=== PATIENT | female | born 1950 | race Caucasian/White ===

== ENCOUNTER 2017-07-14 10:34 | Emergency (ER) | payer BC ==
[~2017-07-14] VITALS: Ht 172.7 cm; Wt 79.0 kg
[2017-07-14 10:36] VITALS: BP 135/79; PULSE 97; RESP 18; TEMP 98.7; O2SAT 98
[2017-07-14] MEDS ORDERED: traMADol HCL 50 MG TAB PO ONE (11:00)
[2017-07-14] MEDS ORDERED: predniSONE 50 MG TAB PO ONE (11:00)
[2017-07-14] MEDS ORDERED: OSPE1TAB (11:02)
[2017-07-14] MEDS ORDERED: PRAV20TA2 PO (11:02)
[2017-07-14] MEDS ORDERED: CLON1TAB PO (11:02)
[2017-07-14] MEDS ORDERED: [UNRECOGNIZED DRUG - CODE] (11:02)
[2017-07-14] MEDS ORDERED: LURA80 PO (11:02)
[2017-07-14] MEDS ORDERED: L-MECAP2 (11:02)
[2017-07-14] MEDS ORDERED: CYMB60CA PO (11:02)
[2017-07-14] MEDS ORDERED: LEVO25TA4 PO (11:02)
--- NOTE | 2017-07-14 11:36 | RADRPT ---
EXAM DATE/TIME: 07/14/2017 10:58 [facility] COMPARISON: No previous studies available for comparison. INDICATIONS : Fall, low back and tailbone pain. MEDICAL HISTORY : None. SURGICAL HISTORY : Fusion, lumbar. ENCOUNTER: Initial ACUITY: 4 - 6 days PAIN SCORE: 10/10 LOCATION: low back FINDINGS: There is normal alignment of the vertebral bodies of the lumbar spine and preservation of vertebral b jessica height. Bilateral transpedicular screws are present at L3 and L4. Bilateral lateral fusion mass from L3-S1 without discontinuity. The arcuate lines of the sacrum are symmetrical. CONCLUSION: 1. No evidence of compression deformity or spondylolisthesis. 2. Evidence of prior surgery from L3-S1 including transpedicular screws at L3 and L4. Gabriele Sauceda MD on July 14, 2017 at 11:33 Board Certified Radiologist. This report was verified electronically.
--- NOTE | 2017-07-14 11:38 | RADRPT ---
EXAM DATE/TIME: 07/14/2017 10:58 [facility] COMPARISON: No previous studies available for comparison. INDICATIONS : Right foot pain, plantar surface, no known injury. MEDICAL HISTORY : None. SURGICAL HISTORY : None. ENCOUNTER: Initial ACUITY: 2 days PAIN SCORE: 10/10 LOCATION: Right plantar foot FINDINGS: Three views of the right foot demonstrate no fracture or dislocation. The Lisfranc joint appears inta ct. Mineralization is within normal limits and there is no significant arthropathy. Small osteophytes are present at the talonavicular joint. No soft tissue abnormality or radiopaque foreign body is [place] ntified. There are small enthesophytes at the posterior and plantar aspect of the calcaneus. CONCLUSION: No acute right foot abnormality is identified. There is mild degenerative change within the midfoot. Keith Ugarte MD on July 14, 2017 at 11:35 Board Certified Radiologist. This report was verified electronically.
--- NOTE | 2017-07-14 11:40 | RADRPT ---
EXAM DATE/TIME: 07/14/2017 10:58 [facility] COMPARISON: No previous studies available for comparison. INDICATIONS : Fall, low back and tailbone pain. MEDICAL HISTORY : None. SURGICAL HISTORY : Fusion, lumbar. ENCOUNTER: Initial ACUITY: 4 - 6 days PAIN SCORE: 10/10 LOCATION: tailbone FINDINGS: 3 views of the sacrum and coccyx demonstrate no fracture. Sacroiliac joints demonstrate no abnormalit y. There has been prior posterior spinal fixation at L3 and L4 with posterior element fusion. There i s pubic symphyseal widening measuring 1.4 cm. Soft tissues demonstrate no acute finding. CONCLUSION: No acute sacrum or coccyx abnormality is identified. There is mild widening of the pubic symphysis me asuring 14 mm. Keith Ugarte MD on July 14, 2017 at 11:36 Board Certified Radiologist. This report was verified electronically.
--- NOTE | 2017-07-14 12:09 | PD ---
HPI Chief Complaint: Musculoskeletal Complaint Time Seen by Provider: 10:49 Travel History International Travel<30 days: No Contact w/Intl Traveler<30days: No Traveled to known affect area: No History of Present Illness HPI Patient is a 66-year-old female who comes in complaining of right foot pain. She says that she fell at work on Thursday onto her tailbone and has been laying in bed all weekend due to the pain. She says that is improving, but when she stands on her foot she has a lot of pain. She says she has had plantar fasciitis in this foot before and usually wears shoes. She says she has been standing without shoes all weekend and she thinks this has caused the pain. She says she is unable to take nonsteroidal anti-inflammatory pills due to history of gastric bypass. She uses medical marijuana for pain control. However, she says this is not helping. Severity is mild to moderate. She did start taking steroids yesterday that were prescribed to her by her primary care physician. PFSH Past Medical History Bipolar Disorder: Yes Anxiety: Yes Depression: Yes Cardiovascular Problems: Yes (orthostatic hypotension) High Cholesterol: Yes Diabetes: Yes (HX ) Patient Takes Glucophage: No Medical other: Yes (DERMATITIS, HYPOGLYCEMIA, DIATOLIC DYSFUNCTION) Musculoskeletal: Yes Neurologic: Yes (HX BELLS PALSY ) Psychiatric: Yes (BIPOLAR, NEUROGENTIC DISORDER) Triglycerides - High: Yes Tetanus Vaccination: < 5 Years Influenza Vaccination: Yes ?: Not Ovarian Cysts: Yes Tubal Ligation: Yes Past Surgical History Abdominal Surgery: Yes (SLEVE GASTRACTOMY, TUMMY TUCK ) Appendectomy: Yes Hysterectomy: Yes Oral Surgery: Yes (WISDOME TEETH ) Thoracic Surgery: Yes (BREAST IMPLANTS ) Tonsillectomy: Yes Other Surgery: Yes (FERGUSON WRITS BONE GRAFTING, 4 BACK SURGERYS AND FUSIONS ) Social History Alcohol Use: Yes (GLAS OF WINE A DAY ) Tobacco Use: No Substance Use: Yes ([facility]) Allergies-Medications (Allergen,Severity, Reaction): Coded Allergies: acetaminophen (Verified Allergy, Severe, DEPRESSION, 07/14/17) bupropion (Verified Allergy, Severe, EDMA, 07/14/17) miconazole (Verified Allergy, Severe, BURNING, 07/14/17) oxaprozin (Unverified Allergy, Severe, Anaphylaxis, 07/14/17) oxycodone (Verified Allergy, Severe, DEPRESSION, 07/14/17) shellfish derived (Unverified Allergy, Severe, Anaphylaxis, 07/14/17) NSAIDS (Non-Steroidal Anti-Inflamma (Verified Allergy, Mild, gi upset, 07/14) Reported Meds & Prescriptions Reported Meds & Active Scripts Active Reported Osphena (Ospemifene) 60 Mg Tab Pravastatin 20 Mg Tab 20 Mg PO DAILY Levothyroxine (Levothyroxine Sodium) 25 Mcg Tab 25 Mcg PO DAILY Nuvigil (Armodafinil) 50 Mg Tab 150 Mg DAILY Deplin ([id number]) [address] (Duloxetine HCl) 60 Mg Capdr 60 Mg PO BID Latuda (Lurasidone) 80 Mg Tab 80 Mg PO DAILY Clonazepam 1 Mg Tab 1 Mg PO BID Review of Systems General / Constitutional: No: Fever, Chills HENT: No: Headaches, Lightheadedness Cardiovascular: No: Chest Pain or Discomfort Respiratory: No: Shortness of Breath Gastrointestinal: No: Nausea, Vomiting Musculoskeletal: Positive: Pain, No: Edema Skin: No Rash, No Change in Pigmentation Neurologic: No: Weakness, Dizziness Physical Exam Narrative GENERAL: Awake and alert, no acute distress. SKIN: Focused skin assessment warm/dry. No wounds or signs of infection. HEAD: Atraumatic. Normocephalic. EYES: Pupils equal and round. No scleral icterus. ENT: No nasal bleeding or discharge. Mucous membranes pink and moist. CARDIOVASCULAR: Regular rate and rhythm. No murmur appreciated. RESPIRATORY: No accessory muscle use. Clear to auscultation. Breath sounds equal bilaterally. MUSCULOSKELETAL: No obvious deformities. No clubbing. No cyanosis. No edema. No tenderness to the spine. Tenderness to palpation of the sacrum. Pain to the plantar surface of the foot, specifically at the base of the arch of the foot. Pedal pulses intact. NEUROLOGICAL: Awake and alert. No obvious cranial nerve deficits. Motor grossly within normal limits. Normal speech. Data Data Last Documented VS Vital Signs Date Time Temp Pulse Resp B/P (MAP) Pulse Ox O2 Delivery O2 Flow Rate FiO2 07/14/17 10:36 98.7 97 18 135/79 (97) 98 Orders Orders Foot, Complete ([id number]) (07/14/17 ) Spine, Lumbar Comp W/Obliq (07/14/17 ) Sacrum And Coccyx (07/14/17 ) Prednisone (Deltasone) (07/14/17 11:00) Tramadol (Ultram) (07/14/17 11:00) MDM Medical Decision Making Medical Screen Exam Complete: Yes Emergency Medical Condition: Yes Medical Record Reviewed: Yes Differential Diagnosis Plantar fasciitis versus foot sprain versus fracture Narrative Course Patient is a 66-year-old female who comes in complaining of foot pain. Exam shows tenderness to the plantar surface of the foot. X-rays of the foot as well as the lumbar and sacral spine performed the show no acute abnormalities. Last 24 hours Impressions Lumbar Spine X-Ray 07/14/17 0000 Signed Impressions: Service Date/Time: Friday, July 14, 2017 10:58 - CONCLUSION: 1. No evidence of compression deformity or spondylolisthesis. 2. Evidence of prior surgery from L3-S1 including transpedicular screws at L3 and L4. Gabriele Sauceda MD Foot X-Ray 07/14/17 0000 Signed Impressions: Service Date/Time: Friday, July 14, 2017 10:58 - CONCLUSION: No acute right foot abnormality is identified. There is mild degenerative change within the midfoot. Keith Ugarte MD Patient given an orthopedic shoe as well as crutches. She has an appointment with the orthopedic surgeon on Thursday. She is advised to follow-up as scheduled. She is advised to continue her steroids at home. She also has pain medicine at home if needed. Advised return anytime for any worsening symptoms. Diagnosis Primary Impression: Plantar fasciitis of right foot Referrals: Aldo Camejo DPM call for appointment Cari Thomas DPM call for appointment Patient Instructions: General Instructions, Plantar Fasciitis (ED) Additional Instructions: Follow-up with your doctor as scheduled. Ice her foot several times a day. Return to the ED as needed for any worsening symptoms. Disposition: 01 DISCHARGE HOME Condition: Stable Cari Schwartz MD July 14, 2017 12:08
== END 2017-07-14 12:30 | disposition home or self-care (01) ==
LOC: PHEFT 10:34
DX: M72.2 Plantar fascial fibromatosis (principal); F31.9 Bipolar disorder, unspecified; F41.9 Anxiety disorder, unspecified; E78.00 Pure hypercholesterolemia, unspecified; E11.9 Type 2 diabetes mellitus without complications; Z79.899 Other long term (current) drug therapy; Z88.5 Allergy status to narcotic agent; Z88.6 Allergy status to analgesic agent; Z88.8 Allergy status to other drugs, medicaments and biological substances
CPT/HCPCS: 72110; 72220; 73630; 99284; E0113; L3260